=== PATIENT | male | born 1965 | race Caucasian/White ===

== ENCOUNTER 2017-06-15 14:51 | Emergency (ER) | payer OTHER ==
--- NOTE | 2017-06-15 15:46 | EDM.PDOC ---
ED HPI GENERAL MEDICAL PROBLEM - General Chief Complaint: Upper Extremity Injury/Pain Stated Complaint: LEFT SHOULDER PAIN Time Seen by Provider: 06/15/17 15:15 Source of Information: Reports: Patient History Limitations: Reports: No Limitations - History of Present Illness INITIAL COMMENTS - FREE TEXT/NARRATIVE: HISTORY AND PHYSICAL: History of present illness: [Patient presents to the emergency room complaining of left shoulder and upper chest pain. States that he slipped on the ice last night and fell landing on his left shoulder and shoulder blade. Complains of pain and deformity to his left clavicle. No other concerns or complaints at this time. ] Review of systems: As per history of present illness and below otherwise all systems reviewed and negative. Past medical history: As per history of present illness and as reviewed below otherwise noncontributory. Surgical history: As per history of present illness and as reviewed below otherwise noncontributory. Social history: No reported history of drug or alcohol abuse. Family history: As per history of present illness and as reviewed below otherwise noncontributory. Physical exam: HEENT: Atraumatic, normocephalic. Chest is normal in appearance. Swelling and bruising is present to mid and distal clavicle. Lungs: Clear to auscultation, breath sounds equal bilaterally. Heart: S1S2, regular rate and rhythm. Neuro: Awake, alert, oriented. Motor and sensory unremarkable throughout. Exam nonfocal. Diagnostics: [L clavicle x-ray] Impression: [Acute mid left clavicular fracture with mild displacement] Plan: [Results are discussed with patient in a shoulder immobilizer is placed. He is offered an injection for pain which patient declined. Encouraged him to take Tylenol shading with ibuprofen as needed for discomfort. And follow-up with orthopedist in the next couple of days. The referral is given to the patient. Rx sent to [facility] for Altair 5/325 mg #10 sig one by mouth every 4-6 hours as needed for pain 0 refills. He is in agreement with today's plan all questions are answered and concerns are addressed.] Definitive disposition and diagnosis as appropriate pending reevaluation and review of above. Left Clavicle Pain Score (Numeric/FACES): 8 - Related Data Allergies Allergy/AdvReac Type Severity Reaction Status Date / Time No Known Allergies Allergy Verified 06/15/17 15:12 Home Meds: Home Meds Allopurinol [Zyloprim] 06/15/17 [History] Glimepiride [Amaryl] 06/15/17 [History] Indomethacin [Indocin] 06/15/17 [History] Lisinopril 06/15/17 [History] metFORMIN [Glucophage XR] 06/15/17 [History] Past Medical History Cardiovascular History: Reports: Hypertension Musculoskeletal History: Reports: Gout Endocrine/Metabolic History: Reports: Diabetes, Type II Social & Family History - Family History Family Medical History: Noncontributory - Tobacco Use Smoking Status *Q: Light Tobacco Smoker Years of Tobacco use: 20 Packs/Tins Daily: 0.1 - Recreational Drug Use Recreational Drug Use: No Review of Systems - Review of Systems Review Of Systems: ROS reveals no pertinent complaints other than HPI. ED EXAM, GENERAL - Physical Exam Exam: See Below Course - Vital Signs Last Recorded V/S: Last Vital Signs Temp 97.6 F 06/15/17 15:08 Pulse 118 H 06/15/17 15:08 Resp 18 06/15/17 15:08 BP 130/99 H 06/15/17 15:08 Pulse Ox 96 06/15/17 15:08 - Orders/Labs/Meds Orders: Active Orders 24 hr Category Date Time Status Clavicle Lt [CR] Stat Exams 06/15/17 15:18 Taken Departure - Departure Time of Disposition: 16:45 Disposition: Home, Self-Care 01 Condition: Good Clinical Impression: Clavicle fracture - Discharge Information Referrals: PCP,None [Primary Care Provider] - Forms: ED Department Discharge Additional Instructions: The following information is given to patients seen in the emergency department who are being discharged to home. This information is to outline your options for follow-up care. We provide all patients seen in our emergency department with a follow-up referral. The need for follow-up, as well as the timing and circumstances, are variable depending upon the specifics of your emergency department visit. If you don't have a primary care physician on staff, we will provide you with a referral. We always advise you to contact your personal physician following an emergency department visit to inform them of the circumstance of the visit and for follow-up with them and/or the need for any referrals to a consulting specialist. The emergency department will also refer you to a specialist when appropriate. This referral assures that you have the opportunity for follow-up care with a specialist. All of these measure are taken in an effort to provide you with optimal care, which includes your follow-up. Under all circumstances we always encourage you to contact your private physician who remains a resource for coordinating your care. When calling for follow-up care, please make the office aware that this follow-up is from your recent emergency room visit. If for any reason you are refused follow-up, please contact the [facility] emergency department at and asked to speak to the emergency department charge nurse. [facility] [address], [address] [place] [address] Follow-up the clinic listed above in the next couple of days. Establish care with a local primary care provider if you going to be in the area for any amount of time. Alternate Tylenol with ibuprofen every couple of hours as needed for pain and inflammation. You're given a prescription for narcotic pain medication. You can take these as needed for severe pain. Return to ER as needed as discussed. - My Orders Last 24 Hours: My Active Orders 06/15/17 15:18 Clavicle Lt [CR] Stat - Assessment/Plan Last 24 Hours: My Active Orders 06/15/17 15:18 Clavicle Lt [CR] Stat
--- NOTE | 2017-06-16 12:52 | CR ---
EXAM DATE: 06/15/17 PATIENT'S AGE: 52 Patient: ANABELL PRICE Facility: [place], [place] Site . Site : [id number] Study: XRay Shoulder Left clavicle [id number]/5/2017 3:35:23 PM Ordering Physician: Doctor Talavera Final Report: HISTORY: Left clavicular pain, fall. TECHNIQUE: Two views of the left clavicle. COMPARISON: No prior. FINDINGS: There is an acute minimally comminuted displaced fracture of the left clavicle involving the mid clavicle. There is superior displacement of the lateral edge of the medial component with respect to the lateral component. There is a small on the order of 1 cm comminuted fragment at site of fracture. Left AC joint degenerative arthrosis. The left glenohumeral joint space appears grossly maintained. No abnormality within the visualized left lung. IMPRESSION: Acute mid left clavicular fracture with mild displacement. Dictated by Carlos Oh MD @ 06/15/2017 3:47:26 PM Dictated by: Carlos Oh MD @ 06/15/2017 15:47:32 (Electronic Signature) Report Signed by Proxy. VIRIDIANA
== END 2017-06-15 17:07 | disposition home or self-care (01) ==
LOC: MW.ED 14:51
DX: S42.022A Displaced fracture of shaft of left clavicle, initial encounter for closed fracture (principal); I10 Essential (primary) hypertension; E11.9 Type 2 diabetes mellitus without complications; M10.9 Gout, unspecified; Z79.84 Long term (current) use of oral hypoglycemic drugs; Z79.899 Other long term (current) drug therapy; F17.210 Nicotine dependence, cigarettes, uncomplicated; W00.0XXA Fall on same level due to ice and snow, initial encounter
CPT/HCPCS: 73000; 99283; A4566